=== PATIENT | female | born 1975 | race American Indian/Alaskan Native ===

== ENCOUNTER 2016-12-22 12:02 | Emergency (ER) | payer MEDICARE ==
[2016-12-22 12:28] VITALS: BP 140/88
[2016-12-22 12:56] LABS: Basophils % (Auto) 0.7 % (0.0-1.8); Eosinophils % (Auto) 1.1 % (0.0-4.3); Hematocrit 37.2 % (30.3-42.9); Hemoglobin 12.4 gm/dl (10.1-14.3); Mean Corpuscular HGB Conc 33 % (30-34); Mean Corpuscular Hemoglobin 31 pg (28-32); Mean Corpuscular Volume 92 fl (79-97); Platelet Count 309 K/mm3 (140-440); Red Blood Count 4.06 M/mm3 (3.65-5.03); Red Cell Distribution Width 13.7 % (13.2-15.2); White Blood Count 7.4 K/mm3 (4.5-11.0)
[2016-12-22 13:17] LABS: Anion Gap 18 mmol/L; Blood Urea Nitrogen 12 mg/dL (7-17); Calcium 9.1 mg/dL (8.4-10.2); Carbon Dioxide 24 mmol/L (22-30); Chloride 103.9 mmol/L (98-107); Glucose 100 mg/dL (65-100); Potassium 3.9 mmol/L (3.6-5.0); Sodium 142 mmol/L (137-145)
--- NOTE | 2016-12-23 08:02 | ED Elopement Review ---
ED Pt Elopement review - Results review Lab results: Laboratory Tests 12/22/16 12/22/16 12/22/16 12:47 12:47 12:47 WBC 7.4 RBC 4.06 Hgb 12.4 Hct 37.2 MCV 92 MCH 31 MCHC 33 RDW 13.7 Plt Count 309 Lymph % (Auto) 29.2 [place] % (Auto) 5.8 Eos % (Auto) 1.1 Baso % (Auto) 0.7 Lymph # 2.2 [place] # 0.4 Eos # 0.1 Baso # 0.1 Seg Neutrophils % 63.2 Seg Neutrophils # 4.7 Sodium 142 Potassium 3.9 Chloride 103.9 Carbon Dioxide 24 Anion Gap 18 BUN 12 Creatinine 0.6 L Estimated GFR > 60 BUN/Creatinine Ratio 20.00 Glucose 100 Calcium 9.1 Troponin T < 0.010 HCG, Qual Negative 12/22/16 15:02 WBC RBC Hgb Hct MCV MCH MCHC RDW Plt Count Lymph % (Auto) [place] % (Auto) Eos % (Auto) Baso % (Auto) Lymph # [place] # Eos # Baso # Seg Neutrophils % Seg Neutrophils # Sodium Potassium Chloride Carbon Dioxide Anion Gap BUN Creatinine Estimated GFR BUN/Creatinine Ratio Glucose Calcium Troponin T < 0.010 HCG, Qual - Call Back decision Pt Call Back Decision: Pt to F/U with PMD
== END 2016-12-23 01:00 | disposition left against medical advice (07) ==
LOC: ED 12:02
DX: R06.02 Shortness of breath (principal); R55 Syncope and collapse; Z53.21 Procedure and treatment not carried out due to patient leaving prior to being seen by health care provider
CPT/HCPCS: 36415; 80048; 84484; 84703; 85025; 93005; 93010

== ENCOUNTER 2017-10-07 11:46 | Emergency (ER) | payer MEDICARE ==
[2017-10-07] MEDS ORDERED: AFRIN ONE (11:50)
[2017-10-07] MEDS ORDERED: AFRIN NS ONE (11:52)
--- NOTE | 2017-10-07 12:01 | Emergency Department Report ---
Chief Complaint: Nosebleed Stated Complaint: NOSE BLEED Time Seen by Provider: 10/07/17 11:51 - HPI History of Present Illness: Patient history of previous embolization of artery with history of severe epistaxis and past here for new nosebleed since this a.m. No dizziness no fainting history of Sjourn syndrome, epistaxis since this am. - Exam Vital Signs: Vital Signs 10/07/17 11:49 Pulse Rate 117 H Respiratory 18 Rate Blood Pressure 162/107 O2 Sat by Pulse 99 Oximetry Physical Exam: Epistaxis bilaterally weak alert oriented 3. MSE screening note: Focused history and physical exam performed. Due to findings the following was ordered: Laboratory studies Afrin spray were ordered patient sent to the main ED for further evaluation ED Disposition for MSE Condition: Stable
[2017-10-07] MEDS ORDERED: NORMODYNE IV ONE ×2 (12:10→12:46)
[2017-10-07] MEDS ORDERED: LIDOCAINE VISCOUS 2% ONE (12:31)
[2017-10-07 12:36] LABS: Basophils % (Auto) 0.4 % (0.0-1.8); Hematocrit 37.3 % (30.3-42.9); Hemoglobin 12.2 gm/dl (10.1-14.3); Mean Corpuscular HGB Conc 33 % (30-34); Mean Corpuscular Hemoglobin 30 pg (28-32); Mean Corpuscular Volume 92 fl (79-97); Platelet Count 285 K/mm3 (140-440); Red Blood Count 4.07 M/mm3 (3.65-5.03); Red Cell Distribution Width 13.8 % (13.2-15.2); White Blood Count 8.6 K/mm3 (4.5-11.0)
[2017-10-07] MEDS ORDERED: LIDOCAINE VISCOUS 2% PO ONE (12:39)
[2017-10-07] MEDS ORDERED: NORMODYNE ONE (12:46)
[2017-10-07 12:48] LABS: INR 0.99 (0.87-1.13)
[2017-10-07] MEDS ORDERED: NORVASC PO ONE (15:09)
--- NOTE | 2017-10-07 15:09 | Emergency Department Report ---
ED General Adult HPI - General Chief complaint: Nosebleed Stated complaint: NOSE BLEED Time Seen by Provider: 10/07/17 11:51 Source: patient Mode of arrival: Ambulatory Limitations: No Limitations - History of Present Illness Initial comments: This patient has had several bouts with epistaxis in the past. Her first nosebleed was obviously very major as it resulted in a neck exploration and I presume a ligation of a culprit vessel. That was many years ago. She presents today with recurrent epistaxis. She was spitting up clots. The source of the epistaxis was the left side. She is noncompliant with her blood pressure medicine. She states that she is on 2 medicines but she does not know the names. -: Gradual, minutes(s) Improves with: none Worsens with: none Associated Symptoms: denies other symptoms - Related Data Home Medications Medication Instructions Recorded Confirmed Last Taken Cyclobenzaprine [Flexeril 10 MG 10 mg PO DAILY 12/06/13 12/06/13 11/27/13 TAB] DULoxetine [Cymbalta] 30 mg PO BID 12/06/13 12/06/13 12/05/13 Hydroxychloroquine [Plaquenil] 200 mg PO BID 12/06/13 12/06/13 12/04/13 Nortriptyline [Pamelor] 25 mg PO DAILY 12/06/13 12/06/13 12/04/13 Sulindac 200 mg PO BID 12/06/13 12/06/13 12/04/13 Previous Rx's Medication Instructions Recorded Last Taken Type Cephalexin [Keflex] 500 mg PO BID #20 capsule 11/19/14 Unknown Rx Hydralazine HCl 50 mg PO BID #60 tablet 10/07/17 Unknown Rx amLODIPine [Norvasc] 5 mg PO DAILY #30 tab 10/07/17 Unknown Rx Allergies Allergy/AdvReac Type Severity Reaction Status Date / Time No Known Allergies Allergy Verified 10/07/17 11:49 ED Review of Systems ROS: Stated complaint: NOSE BLEED Other details as noted in HPI Constitutional: denies: chills, fever Eyes: denies: eye pain, eye discharge, vision change ENT: epistaxis. denies: ear pain, throat pain Respiratory: denies: cough, shortness of breath, wheezing Cardiovascular: denies: chest pain, palpitations Endocrine: no symptoms reported Gastrointestinal: denies: abdominal pain, nausea, diarrhea Genitourinary: denies: urgency, dysuria, discharge Musculoskeletal: denies: back pain, joint swelling, arthralgia Skin: denies: rash, lesions Neurological: denies: headache, weakness, paresthesias Psychiatric: denies: anxiety, depression Hematological/Lymphatic: denies: easy bleeding, easy bruising ED Past Medical Hx - Past Medical History Hx Hypertension: Yes (unknown) Hx Congestive Heart Failure: No Hx Diabetes: No Hx Arthritis: Yes (Sjogrens) Hx Seizures: Yes Hx Asthma: No Hx COPD: No Additional medical history: fibromyalgia. lupus - Surgical History Additional Surgical History: tubal ligation. neck surgery - Social History Smoking Status: Never Smoker Substance Use Type: None - Medications Home Medications: Home Medications Medication Instructions Recorded Confirmed Last Taken Type Cyclobenzaprine [Flexeril 10 MG 10 mg PO DAILY 12/06/13 12/06/13 11/27/13 History TAB] DULoxetine [Cymbalta] 30 mg PO BID 12/06/13 12/06/13 12/05/13 History Hydroxychloroquine [Plaquenil] 200 mg PO BID 12/06/13 12/06/13 12/04/13 History Nortriptyline [Pamelor] 25 mg PO DAILY 12/06/13 12/06/13 12/04/13 History Sulindac 200 mg PO BID 12/06/13 12/06/13 12/04/13 History Cephalexin [Keflex] 500 mg PO BID #20 capsule 11/19/14 Unknown Rx Hydralazine HCl 50 mg PO BID #60 tablet 10/07/17 Unknown Rx amLODIPine [Norvasc] 5 mg PO DAILY #30 tab 10/07/17 Unknown Rx ED Physical Exam - General Limitations: No Limitations General appearance: alert, in no apparent distress - Head Head exam: Present: atraumatic, normocephalic - Eye Eye exam: Present: normal appearance - ENT ENT exam: Present: mucous membranes moist, other (some posterior bleeding noted and blood per left nare) - Neck Neck exam: Present: normal inspection. Absent: tenderness, meningismus - Respiratory Respiratory exam: Present: normal lung sounds bilaterally. Absent: respiratory distress - Cardiovascular Cardiovascular Exam: Present: regular rate, normal rhythm. Absent: systolic murmur, diastolic murmur, rubs, gallop - GI/Abdominal GI/Abdominal exam: Present: soft, normal bowel sounds. Absent: distended, tenderness, guarding, rebound, rigid - Extremities Exam Extremities exam: Present: normal inspection - Back Exam Back exam: Present: normal inspection - Neurological Exam Neurological exam: Present: alert, oriented X3. Absent: CN II-XII intact, motor sensory deficit - Psychiatric Psychiatric exam: Present: normal affect, normal mood - Skin Skin exam: Present: warm, dry, intact, normal color. Absent: rash ED Course Vital Signs 10/07/17 10/07/17 11:49 12:40 Pulse Rate 117 H 117 H Respiratory 18 Rate Blood Pressure 162/107 161/102 O2 Sat by Pulse 99 Oximetry - Reevaluation(s) Reevaluation #1: The left nostril was suctioned. Daniel-Synephrine spray was applied. The passage was anesthetized with viscous lidocaine and applicators. A 7.5 cm kg- posterior Rhino Rocket was placed without difficulty. It was inflated with about 10 mL of air. Procedure was well tolerated. Good hemostasis was achieved. Patient was watched for some time. She received 10 mg of labetalol IV. Her blood pressure drifted up to 140/100. She was started on Norvasc. The patient is strongly encouraged to be compliant with her prescription for blood pressure medication. The nasal packing may be removed within the next 24- 36 hours. Return here or see referral ENT physician. 10/07/17 15:12 ED Medical Decision Making - Lab Data Result diagrams: 10/07/17 12:05 Laboratory Results - last 24 hr 10/07/17 10/07/17 12:05 12:05 WBC 8.6 RBC 4.07 Hgb 12.2 Hct 37.3 MCV 92 MCH 30 MCHC 33 RDW 13.8 Plt Count 285 Lymph % (Auto) 22.4 [place] % (Auto) 7.5 H Eos % (Auto) 1.0 Baso % (Auto) 0.4 Lymph # 1.9 [place] # 0.6 Eos # 0.1 Baso # 0.0 Seg Neutrophils % 68.7 Seg Neutrophils # 5.9 PT 13.6 INR 0.99 Critical care attestation.: If time is entered above; I have spent that time in minutes in the direct care of this critically ill patient, excluding procedure time. ED Disposition Clinical Impression: Posterior epistaxis, Uncontrolled hypertension Disposition: DC-01 TO HOME OR SELFCARE Is pt being admited?: No Does the pt Need Aspirin: No Condition: Stable Instructions: Hypertension (ED) Additional Instructions: Do not lay flat. Keep your head propped up all night. Check blood pressure. Indication as directed. See ENT referral for follow-up. Also see her primary care physician as soon as possible. The nasal device may be removed between 24- 36 hours. Return here or with ENT physician. Do not take sulindac or any other anti-inflammatory medicine or aspirin over the next several days to your blood pressure is controlled and your packing is removed. Prescriptions: amLODIPine [Norvasc] 5 mg PO DAILY #30 tab Hydralazine HCl 50 mg PO BID #60 tablet Referrals: LOWELL KHOURY MD [Staff Physician] - 2-3 Days usual, primary care [Other] - [place] Time of Disposition: 15:15
[2017-10-07 16:28] VITALS: BP 143/92
== END 2017-10-07 16:10 | disposition home or self-care (01) ==
LOC: ED 11:46
DX: R04.0 Epistaxis (principal); I10 Essential (primary) hypertension; M35.00 Sjogren syndrome, unspecified; R56.9 Unspecified convulsions
CPT/HCPCS: 36415; 85025; 85610; 96374

== ENCOUNTER 2018-01-29 15:09 | Emergency (ER) | payer MEDICARE ==
[2018-01-29] MEDS ORDERED: REGLAN IV ONE (16:44)
[2018-01-29] MEDS ORDERED: BENADRYL IV ONE (16:44)
--- NOTE | 2018-01-29 16:48 | Emergency Department Report ---
ED Headache HPI - General Chief Complaint: Headache Stated Complaint: HEADACHE Time Seen by Provider: 01/29/18 16:20 - History of Present Illness Initial Comments: Patient is a 42-year-old female with a history of lupus controlled with medication who presents to ED today complaining of headache 2 days. Patient states he describes headache as throbbing, aching in nature and localized to frontal and back region of her head. Patient denies any trauma injuries to the head and neck. Patient states headache worsened with light. Patient states that she is not that her pressure but has been told multiple times her blood pressure is elevated. Patient states she does get headaches from time to time like this before. She denies fevers/chills/nausea vomiting blurred vision. Quality: moderate, achy, throbbing Head Injury Location: frontal Recent Head Trauma: no recent headache/trauma, occasional headaches Modifying Factors: improves with: rest. worse with: exposure to light Allergies/Adverse Reactions: Allergies No Known Allergies Allergy (Verified 10/07/17 11:49) Home Medications: Ambulatory Orders Cyclobenzaprine [Flexeril 10 MG TAB] 10 mg PO DAILY 12/06/13 DULoxetine [Cymbalta] 30 mg PO BID 12/06/13 Hydroxychloroquine [Plaquenil] 200 mg PO BID 12/06/13 Nortriptyline [Pamelor] 25 mg PO DAILY 12/06/13 Sulindac 200 mg PO BID 12/06/13 Cephalexin [Keflex] 500 mg PO BID #20 capsule 11/19/14 Hydralazine HCl 50 mg PO BID #60 tablet 10/07/17 amLODIPine [Norvasc] 5 mg PO DAILY #30 tab 10/07/17 Butalb/Acetaminophen/Caffeine [Fioricet 50-300-40 mg CAP] 1 cap PO Q8HR PRN #24 cap 01/29/18 Ibuprofen [Motrin] 800 mg PO Q8HR PRN #30 tablet 01/29/18 ED Review of Systems ROS: Stated complaint: HEADACHE Other details as noted in HPI Constitutional: denies: chills, fever Eyes: denies: eye pain, eye discharge, vision change ENT: denies: ear pain, throat pain Respiratory: denies: cough, shortness of breath, wheezing Cardiovascular: denies: chest pain, palpitations Endocrine: no symptoms reported Gastrointestinal: denies: abdominal pain, nausea, diarrhea Genitourinary: denies: urgency, dysuria, discharge Musculoskeletal: denies: back pain, joint swelling, arthralgia Skin: denies: rash, lesions Neurological: headache. denies: weakness, numbness, paresthesias, confusion Psychiatric: denies: anxiety, depression Hematological/Lymphatic: denies: easy bleeding, easy bruising ED Past Medical Hx - Past Medical History Previous Medical History?: Yes Hx Hypertension: Yes (unknown) Hx Congestive Heart Failure: No Hx Diabetes: No Hx Arthritis: Yes (Sjogrens) Hx Seizures: Yes Hx Asthma: No Hx COPD: No Additional medical history: fibromyalgia. lupus - Surgical History Past Surgical History?: Yes Additional Surgical History: tubal ligation. neck surgery - Social History Smoking Status: Never Smoker Substance Use Type: Prescribed - Medications Home Medications: Home Medications Medication Instructions Recorded Confirmed Last Taken Type Cyclobenzaprine [Flexeril 10 MG 10 mg PO DAILY 12/06/13 12/06/13 11/27/13 History TAB] DULoxetine [Cymbalta] 30 mg PO BID 12/06/13 12/06/13 12/05/13 History Hydroxychloroquine [Plaquenil] 200 mg PO BID 12/06/13 12/06/13 12/04/13 History Nortriptyline [Pamelor] 25 mg PO DAILY 12/06/13 12/06/13 12/04/13 History Sulindac 200 mg PO BID 12/06/13 12/06/13 12/04/13 History Cephalexin [Keflex] 500 mg PO BID #20 capsule 11/19/14 Unknown Rx Hydralazine HCl 50 mg PO BID #60 tablet 10/07/17 Unknown Rx amLODIPine [Norvasc] 5 mg PO DAILY #30 tab 10/07/17 Unknown Rx Butalb/Acetaminophen/Caffeine 1 cap PO Q8HR PRN #24 cap 01/29/18 Unknown Rx [Fioricet 50-300-40 mg CAP] Ibuprofen [Motrin] 800 mg PO Q8HR PRN #30 tablet 01/29/18 Unknown Rx ED Physical Exam - General Limitations: No Limitations General appearance: alert, in no apparent distress - Head Head exam: Present: atraumatic, normocephalic - Eye Eye exam: Present: normal appearance - ENT ENT exam: Present: mucous membranes moist - Neck Neck exam: Present: normal inspection - Respiratory Respiratory exam: Present: normal lung sounds bilaterally. Absent: respiratory distress - Cardiovascular Cardiovascular Exam: Present: regular rate, normal rhythm. Absent: systolic murmur, diastolic murmur, rubs, gallop - GI/Abdominal GI/Abdominal exam: Present: soft, normal bowel sounds - Extremities Exam Extremities exam: Present: normal inspection - Back Exam Back exam: Present: normal inspection - Neurological Exam Neurological exam: Present: alert, oriented X3, CN II-XII intact, normal gait, reflexes normal - Expanded Neurological Exam Expanded Patient oriented to: Present: person, place, time Speech: Present: fluid speech Cranial nerves: Facial Sensation: Normal Cerebellar function: Finger to Nose: Normal Sensory exam: Upper Extremity Light Touch: Normal, Lower Extremity Light Touch: Normal Motor strength exam: RUE: 5, LUE: 5, RLE: 5, LLE: 5 DTR: knee (R): 2+, knee (L): 2+ Best Eye Response ([place]): (4) open spontaneously Best Motor Response ([place]): (6) obeys commands Best Verbal Response ([place]): (5) oriented [place] Total: 15 - Psychiatric Psychiatric exam: Present: normal affect, normal mood - Skin Skin exam: Present: warm, dry, intact, normal color. Absent: rash ED Course Vital Signs 01/29/18 15:13 Temperature 98.2 F Pulse Rate 117 H Respiratory 20 Rate Blood Pressure 156/104 O2 Sat by Pulse 98 Oximetry ED Medical Decision Making - Medical Decision Making Patient is a 42-year-old female presents to ED for tension-type headache ED course: Reglan and Benadryl IV given. I discussed patient she will need to take medication as prescribed. Fioricet and Motrin as needed for pain I discussed the patient to avoid triggers. I discussed the patient to monitor blood pressure and to follow-up with the primary care physician for blood pressure assessment. Vital signs stable. Headache resolved prior to discharge. Patient had no neuro deficit. She is neurological intact. Critical care attestation.: If time is entered above; I have spent that time in minutes in the direct care of this critically ill patient, excluding procedure time. ED Disposition Clinical Impression: Acute tension-type headache Qualifiers: Intractability: not intractable Qualified Code(s): G44.209 - Tension-type headache, unspecified, not intractable Disposition: DC-01 TO HOME OR SELFCARE Is pt being admited?: No Does the pt Need Aspirin: No Condition: Stable Instructions: Tension Headache (ED), How to Take a Blood Pressure (ED), Acute Headache (ED), Low Sodium Diet (ED), Hypertension (ED) Additional Instructions: Make sure to follow up with the primary care physician as discussed. Take all your medications as you've been prescribed. If you have any worsening symptoms or develop new symptoms please return to ED immediately. Prescriptions: Butalb/Acetaminophen/Caffeine [Fioricet 50-300-40 mg CAP] 1 cap PO Q8HR PRN #24 cap PRN Reason: Headache Ibuprofen [Motrin] 800 mg PO Q8HR PRN #30 tablet PRN Reason: Pain Referrals: INES SINGH MD [Primary Care Provider] - 3-5 Days DIRK CARCAMO MD [Staff Physician] - 3-5 Days BRENDA DESHPANDE MD [Referring] - 3-5 Days [facility] [Provider Group] - 3-5 Days [facility] [Outside] - 3-5 Days [facility] [Outside] - 3-5 Days Forms: Accompanied Note, Work/School Release Form(ED) Time of Disposition: 17:01
[2018-01-29 17:31] VITALS: BP 145/96
== END 2018-01-29 17:31 | disposition home or self-care (01) ==
LOC: ED 15:09
DX: G44.209 Tension-type headache, unspecified, not intractable (principal); I10 Essential (primary) hypertension
CPT/HCPCS: 96374; 96375; 99282; J1200; J2765

== ENCOUNTER 2018-11-19 16:32 | Emergency (ER) | payer MEDICARE ==
[2018-11-19 16:57] VITALS: BP 174/108
[2018-11-19] MEDS ORDERED: ASPIRIN PO ONE (16:57)
--- NOTE | 2018-11-19 17:28 | XRay Report ---
FINAL REPORT PROCEDURE: Chest. TECHNIQUE: PA and lateral chest radiographs were obtained. CPT 13106 HISTORY: Shortness of breath for 2 days. COMPARISON: No prior studies are available for comparison. FINDINGS: The heart size is normal. There is mild tortuosity of the thoracic aorta. The lungs are mildly hyperi nflated. There is some linear interstitial opacity in both lower lobes. This may represent fibrosis. The lungs are otherwise clear. There are no pleural effusions. The soft tissues and regional skeleton are unremarkable. IMPRESSION: Mild COPD. Possible fibrosis in both lower lobes.
[2018-11-19 17:36] LABS: Basophils % (Auto) 0.4 % (0.0-1.8); Eosinophils # (Auto) 0.1 K/mm3 (0.0-0.4); Eosinophils % (Auto) 1.6 % (0.0-4.3); Hematocrit 37.3 % (30.3-42.9); Hemoglobin 12.3 gm/dl (10.1-14.3); Lymphocytes # (Auto) 2.2 K/mm3 (1.2-5.4); Lymphocytes % (Auto) 29.4 % (13.4-35.0); Mean Corpuscular HGB Conc 33 % (30-34); Mean Corpuscular Volume 90 fl (79-97); Monocytes # (Auto) 0.6 K/mm3 (0.0-0.8); Monocytes % (Auto) 8.6 % (0.0-7.3); Platelet Count 289 K/mm3 (140-440); Red Blood Count 4.14 M/mm3 (3.65-5.03); Red Cell Distribution Width 14.5 % (13.2-15.2)
[2018-11-19 17:54] LABS: BUN/Creatinine Ratio 20; Blood Urea Nitrogen 12 mg/dL (7-17); Hemolysis Index 18
--- NOTE | 2018-11-19 18:06 | Emergency Department Report ---
ED Chest Pain HPI - General Chief Complaint: Dyspnea/Respdistress Stated Complaint: SOB/DIZZY/VOMITING Time Seen by Provider: 11/19/18 17:42 Source: patient Mode of arrival: Ambulatory Limitations: No Limitations - History of Present Illness Initial Comments: Ms. lynn is a very pleasant 43-year-old female with history of Sjogren syndrome, seizure, rheumatoid arthritis, fibromyalgia who presents with headache for one week. She also had sharp chest pain last night. During routine with her bilingual medical assistant Dr. Ro today, she noticed that her blood pressure was elevated. Consequently she came to the ED just to make sure everything was okay. Last night while laying in the back of the truck after a fishing trip, she experienced sharp sided chest pain sporadic which lasted several seconds. She also experienced shortness of breath. Currently she is symptom free. After the of her 's blood pressure was elevated a few years ago, she required antihypertensives medication at the time several years ago. Currently she is not under the care of PCP. She was last followed by Dr. Susanna Luna. Complaint: chest pain -: Sudden, Last night Onset: during rest Pain Location: left chest Pain Radiation: none Severity scale (0 -10): 0 Quality: sharp Improves With: nothing Worsens With: nothing re: dyspnea Treatments Prior to Arrival: none - Related Data Home Medications Medication Instructions Recorded Confirmed Last Taken Cyclobenzaprine [Flexeril 10 MG 10 mg PO DAILY 12/06/13 12/06/13 11/27/13 TAB] DULoxetine [Cymbalta] 30 mg PO BID 12/06/13 12/06/13 12/05/13 Hydroxychloroquine [Plaquenil] 200 mg PO BID 12/06/13 12/06/13 12/04/13 Nortriptyline [Pamelor] 25 mg PO DAILY 12/06/13 12/06/13 12/04/13 Sulindac 200 mg PO BID 12/06/13 12/06/13 12/04/13 Previous Rx's Medication Instructions Recorded Last Taken Type cephALEXin [Keflex] 500 mg PO BID #20 capsule 11/19/14 Unknown Rx Hydralazine HCl 50 mg PO BID #60 tablet 10/07/17 Unknown Rx amLODIPine [Norvasc] 5 mg PO DAILY #30 tab 10/07/17 Unknown Rx Butalb/Acetaminophen/Caffeine 1 cap PO Q8HR PRN #24 cap 01/29/18 Unknown Rx [Fioricet 50-300-40 mg CAP] Ibuprofen [Motrin] 800 mg PO Q8HR PRN #30 tablet 01/29/18 Unknown Rx amLODIPine [Norvasc] 5 mg PO DAILY 30 Days #30 tab 11/19/18 Unknown Rx Allergies Allergy/AdvReac Type Severity Reaction Status Date / Time No Known Allergies Allergy Verified 10/07/17 11:49 Heart Score - HEART Score History: Slightly suspicious EKG: Normal Age: < 45 Risk factors: 1-2 risk factors Troponin: < normal limit HEART Score: 1 ED Review of Systems ROS: Stated complaint: SOB/DIZZY/VOMITING Other details as noted in HPI Comment: All other systems reviewed and negative Constitutional: denies: chills, fever Eyes: denies: eye pain, eye discharge, vision change ENT: denies: ear pain, throat pain Respiratory: shortness of breath. denies: cough, wheezing Cardiovascular: chest pain. denies: palpitations Endocrine: no symptoms reported Gastrointestinal: denies: abdominal pain, nausea, diarrhea Genitourinary: denies: urgency, dysuria, discharge Neurological: headache, paresthesias Psychiatric: denies: anxiety, depression Hematological/Lymphatic: denies: easy bleeding, easy bruising ED Past Medical Hx - Past Medical History Previous Medical History?: Yes Hx Hypertension: Yes (unknown) Hx Congestive Heart Failure: No Hx Diabetes: No Hx Arthritis: Yes (Sjogrens) Hx Seizures: Yes Hx Asthma: No Hx COPD: No Additional medical history: fibromyalgia. lupus - Surgical History Additional Surgical History: tubal ligation. neck surgery - Family History Family history: CAD/MD, cancer, diabetes, hypertension - Social History Smoking Status: Never Smoker Substance Use Type: None - Medications Home Medications: Home Medications Medication Instructions Recorded Confirmed Last Taken Type Cyclobenzaprine [Flexeril 10 MG 10 mg PO DAILY 12/06/13 12/06/13 11/27/13 History TAB] DULoxetine [Cymbalta] 30 mg PO BID 12/06/13 12/06/13 12/05/13 History Hydroxychloroquine [Plaquenil] 200 mg PO BID 12/06/13 12/06/13 12/04/13 History Nortriptyline [Pamelor] 25 mg PO DAILY 12/06/13 12/06/13 12/04/13 History Sulindac 200 mg PO BID 12/06/13 12/06/13 12/04/13 History cephALEXin [Keflex] 500 mg PO BID #20 capsule 11/19/14 Unknown Rx Hydralazine HCl 50 mg PO BID #60 tablet 10/07/17 Unknown Rx amLODIPine [Norvasc] 5 mg PO DAILY #30 tab 10/07/17 Unknown Rx Butalb/Acetaminophen/Caffeine 1 cap PO Q8HR PRN #24 cap 01/29/18 Unknown Rx [Fioricet 50-300-40 mg CAP] Ibuprofen [Motrin] 800 mg PO Q8HR PRN #30 tablet 01/29/18 Unknown Rx amLODIPine [Norvasc] 5 mg PO DAILY 30 Days #30 tab 11/19/18 Unknown Rx ED Physical Exam - General Limitations: No Limitations General appearance: alert, in no apparent distress - Head Head exam: Present: atraumatic, normocephalic - Eye Eye exam: Present: normal appearance - ENT ENT exam: Present: mucous membranes moist - Neck Neck exam: Present: normal inspection, full ROM. Absent: tenderness - Respiratory Respiratory exam: Present: normal lung sounds bilaterally. Absent: respiratory distress, wheezes, rales, rhonchi - Cardiovascular Cardiovascular Exam: Present: regular rate, normal rhythm, normal heart sounds. Absent: systolic murmur, diastolic murmur, rubs, gallop - GI/Abdominal GI/Abdominal exam: Present: soft, normal bowel sounds. Absent: distended, tenderness, guarding, rebound - Extremities Exam Extremities exam: Present: normal inspection - Back Exam Back exam: Present: normal inspection - Neurological Exam Neurological exam: Present: alert, oriented X3 - Psychiatric Psychiatric exam: Present: normal affect, normal mood - Skin Skin exam: Present: warm, dry, intact, normal color. Absent: rash ED Course Vital Signs 11/19/18 16:55 Temperature 98.1 F Pulse Rate 93 H Respiratory 20 Rate Blood Pressure 174/108 O2 Sat by Pulse 99 Oximetry ED Medical Decision Making - Lab Data Result diagrams: 11/19/18 17:17 11/19/18 17:17 Laboratory Results - last 24 hr 11/19/18 11/19/18 17:17 17:17 WBC 7.4 RBC 4.14 Hgb 12.3 Hct 37.3 MCV 90 MCH 30 MCHC 33 RDW 14.5 Plt Count 289 Lymph % (Auto) 29.4 [place] % (Auto) 8.6 H Eos % (Auto) 1.6 Baso % (Auto) 0.4 Lymph # 2.2 [place] # 0.6 Eos # 0.1 Baso # 0.0 Seg Neutrophils % 60.0 Seg Neutrophils # 4.5 Sodium 136 L Potassium 3.8 Chloride 101.2 Carbon Dioxide 25 Anion Gap 14 BUN 12 Creatinine 0.6 L Estimated GFR > 60 BUN/Creatinine Ratio 20 Glucose 85 Calcium 9.0 Troponin T < 0.010 - EKG Data EKG shows normal: sinus rhythm, axis, intervals, QRS complexes, ST-T waves Rate: normal - EKG Data Interpretation: no acute changes 11/19/18 18:07 Rate 85 bpm - Radiology Data Radiology results: report reviewed Chest x-ray radiology findings: mild COPD possible pulmonary fibrosis - Medical Decision Making Ms. lynn is a very pleasant 43-year-old female presents with chest pain, dyspnea and headache. She also presents for elevated blood pressure. I reviewed the pressure readings from previous encounters. Since 2017 she had persistently elevated blood pressure. She was previously treated with hydralazine and amlodipine. I suspect essential primary hypertension. I recommended and prescribed Norvasc 30 day prescription. She will have blood pressure checked in 1-2 weeks. I referred her to outpatient physician reference and instruction librarian. Chest pain atypical for acute coronary syndrome. low risk HEART score 1. PERC negative for PE. Currently chest pain-free at this time. I review labs, CBC chemistry troponin within normal limits. Critical care attestation.: If time is entered above; I have spent that time in minutes in the direct care of this critically ill patient, excluding procedure time. ED Disposition Clinical Impression: Chest pain, Hypertension Disposition: DC-01 TO HOME OR SELFCARE Is pt being admited?: No Does the pt Need Aspirin: No Condition: Stable Instructions: Chest Pain (ED), Hypertension (ED) Additional Instructions: Please have your blood pressure checked in 1-2 weeks. Prescriptions: amLODIPine [Norvasc] 5 mg PO DAILY 30 Days #30 tab Referrals: NIKO KIRBY MD [Staff Physician] - 3-5 Days
== END 2018-11-19 18:52 | disposition home or self-care (01) ==
LOC: ED 16:32
DX: R07.89 Other chest pain (principal); I10 Essential (primary) hypertension; M19.90 Unspecified osteoarthritis, unspecified site; Z98.51 Tubal ligation status; Z79.899 Other long term (current) drug therapy
CPT/HCPCS: 36415; 71046; 80048; 84484; 85025; 93005; 93010; 99282

== ENCOUNTER 2019-04-15 17:28 | Emergency (ER) | payer MEDICARE ==
--- NOTE | 2019-04-15 18:36 | Event Note ---
ED Screening Note Date of service: 04/15/19 Time: 18:32 ED Screening Note: 44 y/o female comes in for leg pain and swelling to both. Hx/o Lupus and fibromyalgia. Also has SOB. No travailing, no CA, in . This initial assessment/diagnostic orders/clinical plan/treatment(s) is/are subject to change based on patients health status, clinical progression and re- assessment by fellow clinical providers in the ED. Further treatment and workup at subsequent clinical providers discretion. Patient/guardian urged not to elope from the ED as their condition may be serious if not clinically assessed and managed. Initial orders include:
--- NOTE | 2019-04-15 19:07 | XRay Report ---
CHEST 2 VIEWS INDICATION / CLINICAL INFORMATION: DAVID. Shortness of breath and bilateral leg swelling COMPARISON: None available. FINDINGS: SUPPORT DEVICES: None. HEART / MEDIASTINUM: No significant abnormality. LUNGS / PLEURA: Bibasilar interstitial fibrosis is suspected. No pneumothorax. ADDITIONAL FINDINGS: No significant additional findings. IMPRESSION: 1. 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 Recommend HRCT for confirmation. Signer Name: James Armendariz MD Signed: 04/15/2019 7:02 PM Workstation Name: [id number]
[2019-04-15] MEDS ORDERED: SOLU-Medrol IV ONE (19:37)
[2019-04-15] MEDS ORDERED: TORADOL IV ONE (19:37)
[2019-04-15 20:22] LABS: Basophils % (Auto) 0.3 % (0.0-1.8); Eosinophils # (Auto) 0.1 K/mm3 (0.0-0.4); Eosinophils % (Auto) 0.8 % (0.0-4.3); Hematocrit 33.2 % (30.3-42.9); Hemoglobin 11.2 gm/dl (10.1-14.3); Lymphocytes # (Auto) 1.8 K/mm3 (1.2-5.4); Mean Corpuscular HGB Conc 34 % (30-34); Mean Corpuscular Volume 92 fl (79-97); Monocytes # (Auto) 0.7 K/mm3 (0.0-0.8); Monocytes % (Auto) 7.6 % (0.0-7.3); Platelet Count 269 K/mm3 (140-440); Red Blood Count 3.61 M/mm3 (3.65-5.03); Red Cell Distribution Width 13.8 % (13.2-15.2)
[2019-04-15 20:39] LABS: Alanine Aminotransferase 7 units/L (7-56); Albumin 3.7 g/dL (3.9-5); BUN/Creatinine Ratio 15; Blood Urea Nitrogen 9 mg/dL (7-17); Calcium 9.3 mg/dL (8.4-10.2); Hemolysis Index 7
[2019-04-15 20:48] VITALS: BP 165/108
--- NOTE | 2019-04-15 23:06 | Emergency Department Report ---
ED General Adult HPI - General Chief complaint: Dyspnea/Respdistress Stated complaint: SOB/SWOLLEN LEG Time Seen by Provider: 04/15/19 19:20 Source: patient Mode of arrival: Ambulatory Limitations: No Limitations - History of Present Illness Initial comments: Patient is a 44-year-old -[place] female with a history of SLE, Seizures, HTN, Sjorgren's disease and fibromyalgia and who presents to the ED with the complaint of acute onset persistent bilateral lower extremity swelling and pain for the last 1 week, but which got worse in the last 2 days. Patient also complains of exertional shortness of breath. Patient denies chest pain, dizziness, syncope, nausea, vomiting, abdominal pain, traumatic injury, recent travel or procedure, diarrhea, fever, chills, cough, sore throat, headache, nasal and sinus congestion or diaphoresis and wheezing. MD Complaint: Bilateral leg swelling -: Gradual, week(s) (1) Location: lower extremity (bilateral lower extremities) Radiation: non-radiation Severity scale (0 -10): 4 Quality: aching Consistency: constant Improves with: none Worsens with: movement Associated Symptoms: denies other symptoms, shortness of breath. denies: confusion, chest pain, cough, diaphoresis, fever/chills, headaches, loss of appetite, malaise, seizure, syncope, weakness Treatments Prior to Arrival: none - Related Data Home Medications Medication Instructions Recorded Confirmed Last Taken Cyclobenzaprine [Flexeril 10 MG 10 mg PO DAILY 12/06/13 12/06/13 11/27/13 TAB] DULoxetine [Cymbalta] 30 mg PO BID 12/06/13 12/06/13 12/05/13 Hydroxychloroquine [Plaquenil] 200 mg PO BID 12/06/13 12/06/13 12/04/13 Nortriptyline [Pamelor] 25 mg PO DAILY 12/06/13 12/06/13 12/04/13 Sulindac 200 mg PO BID 12/06/13 12/06/13 12/04/13 Previous Rx's Medication Instructions Recorded Last Taken Type cephALEXin [Keflex] 500 mg PO BID #20 capsule 11/19/14 Unknown Rx Hydralazine HCl 50 mg PO BID #60 tablet 10/07/17 Unknown Rx amLODIPine [Norvasc] 5 mg PO DAILY #30 tab 10/07/17 Unknown Rx Butalb/Acetaminophen/Caffeine 1 cap PO Q8HR PRN #24 cap 01/29/18 Unknown Rx [Fioricet 50-300-40 mg CAP] Ibuprofen [Motrin] 800 mg PO Q8HR PRN #30 tablet 01/29/18 Unknown Rx amLODIPine [Norvasc] 5 mg PO DAILY 30 Days #30 tab 11/19/18 Unknown Rx Allergies Allergy/AdvReac Type Severity Reaction Status Date / Time No Known Allergies Allergy Verified 04/15/19 18:34 ED Review of Systems ROS: Stated complaint: SOB/SWOLLEN LEG Other details as noted in HPI Constitutional: denies: chills, fever Eyes: denies: eye pain, eye discharge, vision change ENT: denies: ear pain, throat pain Respiratory: denies: cough, shortness of breath, wheezing Cardiovascular: denies: chest pain, palpitations Endocrine: no symptoms reported Gastrointestinal: denies: abdominal pain, nausea, diarrhea Genitourinary: denies: urgency, dysuria, discharge Musculoskeletal: back pain, arthralgia (Bilateral lower extremity pain), other (Bilateral Lower extremity swelling). denies: joint swelling Skin: denies: rash, lesions Neurological: denies: headache, weakness, paresthesias Psychiatric: denies: anxiety, depression Hematological/Lymphatic: denies: easy bleeding, easy bruising ED Past Medical Hx - Past Medical History Previous Medical History?: Yes Hx Hypertension: Yes Hx Congestive Heart Failure: No Hx Diabetes: No Hx Arthritis: Yes (Sjogrens, RA) Hx Seizures: Yes Hx Asthma: No Hx COPD: No Additional medical history: fibromyalgia. lupus - Surgical History Past Surgical History?: Yes Additional Surgical History: tubal ligation. neck surgery - Social History Smoking Status: Never Smoker Substance Use Type: None - Medications Home Medications: Home Medications Medication Instructions Recorded Confirmed Last Taken Type Cyclobenzaprine [Flexeril 10 MG 10 mg PO DAILY 12/06/13 12/06/13 11/27/13 History TAB] DULoxetine [Cymbalta] 30 mg PO BID 12/06/13 12/06/13 12/05/13 History Hydroxychloroquine [Plaquenil] 200 mg PO BID 12/06/13 12/06/13 12/04/13 History Nortriptyline [Pamelor] 25 mg PO DAILY 0212/06/13 12/04/13 History Sulindac 200 mg PO BID 12/06/13 12/06/13 12/04/13 History cephALEXin [Keflex] 500 mg PO BID #20 capsule 11/19/14 Unknown Rx Hydralazine HCl 50 mg PO BID #60 tablet 10/07/17 Unknown Rx amLODIPine [Norvasc] 5 mg PO DAILY #30 tab 10/07/17 Unknown Rx Butalb/Acetaminophen/Caffeine 1 cap PO Q8HR PRN #24 cap 01/29/18 Unknown Rx [Fioricet 50-300-40 mg CAP] Ibuprofen [Motrin] 800 mg PO Q8HR PRN #30 tablet 01/29/18 Unknown Rx amLODIPine [Norvasc] 5 mg PO DAILY 30 Days #30 tab 11/19/18 Unknown Rx ED Physical Exam - General Limitations: No Limitations General appearance: alert, in no apparent distress - Head Head exam: Present: atraumatic, normocephalic, normal inspection - Eye Eye exam: Present: normal appearance, PERRL, EOMI Pupils: Present: normal accommodation - ENT ENT exam: Present: normal exam, normal orophraynx, mucous membranes moist, TM's normal bilaterally, normal external ear exam - Neck Neck exam: Present: normal inspection, full ROM. Absent: tenderness - Respiratory Respiratory exam: Present: normal lung sounds bilaterally. Absent: respiratory distress, wheezes, rales, stridor, accessory muscle use, decreased breath sounds, prolonged expiratory - Cardiovascular Cardiovascular Exam: Present: regular rate, normal rhythm, normal heart sounds. Absent: systolic murmur, diastolic murmur, rubs, gallop - GI/Abdominal GI/Abdominal exam: Present: soft, normal bowel sounds. Absent: tenderness, guarding, hyperactive bowel sounds, hypoactive bowel sounds, organomegaly - Rectal Rectal exam: Present: deferred - Extremities Exam Extremities exam: Present: normal inspection, full ROM, tenderness (Diffuse lower extremity palpable musculoskeletal tenderness), normal capillary refill - Back Exam Back exam: Present: normal inspection, full ROM, tenderness (Palpable lumbosacral paraspinal and musculoskeletal tenderness), muscle spasm, paraspinal tenderness. Absent: CVA tenderness (R), CVA tenderness (L) - Neurological Exam Neurological exam: Present: alert, oriented X3, CN II-XII intact, normal gait, reflexes normal - Psychiatric Psychiatric exam: Present: normal affect, normal mood - Skin Skin exam: Present: warm, dry, intact, normal color. Absent: rash, cyanosis, diaphoretic, urticaria, vesicles ED Course Vital Signs 04/15/19 04/15/19 17:37 20:46 Temperature 98.0 F Pulse Rate 96 H 87 Respiratory 14 17 Rate Blood Pressure 146/96 165/108 [Right] O2 Sat by Pulse 99 100 Oximetry - Reevaluation(s) Reevaluation #1: 04/15/19 23:08 Patient is alert and oriented 3 and is not in distress with normal vital signs. Labs were drawn and patient today for pain. EKG was also ordered as well as chest x-ray. Chest x-ray shows no acute cardiopulmonary abnormalities. Lab test results were reviewed and are unremarkable including a BNP and troponin levels. Patient was discharged home on pain medications and muscle relaxants and advised to follow-up with her primary care physician in 7-10 days for reevaluation or return to the ED immediately if symptoms get worse. ED Medical Decision Making - Lab Data Result diagrams: 04/15/19 19:52 04/15/19 19:52 - Radiology Data Radiology results: report reviewed, image reviewed Chest x-ray shows no acute cardiopulmonary abnormalities - Medical Decision Making Patient is alert and oriented 3 and is not in distress with normal vital signs. Labs were drawn and patient today for pain. EKG was also ordered as well as chest x-ray. Chest x-ray shows no acute cardiopulmonary abnormalities. Lab test results were reviewed and are unremarkable including a BNP and troponin levels. Patient was discharged home on pain medications and muscle relaxants and advised to follow-up with her primary care physician in 7-10 days for r eevaluation or return to the ED immediately if symptoms get worse. - Differential Diagnosis CHF; CAD; Pneumonia; Chronic Fibromyalgia Critical care attestation.: If time is entered above; I have spent that time in minutes in the direct care of this critically ill patient, excluding procedure time. ED Disposition Clinical Impression: Muscle spasm of both lower legs, Anxiety as acute reaction to exceptional stress, Shortness of breath Disposition: ELOPED Is pt being admited?: No Does the pt Need Aspirin: No Condition: Stable Instructions: Chronic Pain (ED), Arthralgia (ED), Muscle Spasm (ED) Additional Instructions: Take medications with food, drink plenty of fluids. Follow up with your primary care physician in 7-10 days for reevaluation. Return to the ED immediately if symptoms get worse. Referrals: [facility] [Outside] - 3-5 Days Time of Disposition: 23:13 Print Language: ICELANDIC
== END 2019-04-16 00:10 | disposition left against medical advice (07) ==
LOC: ED 17:28
DX: M62.831 Muscle spasm of calf (principal); F41.9 Anxiety disorder, unspecified; R06.02 Shortness of breath; I10 Essential (primary) hypertension; M19.90 Unspecified osteoarthritis, unspecified site; R56.9 Unspecified convulsions; M79.7 Fibromyalgia; M32.9 Systemic lupus erythematosus, unspecified; Z98.51 Tubal ligation status; Z98.890 Other specified postprocedural states; Z79.899 Other long term (current) drug therapy
CPT/HCPCS: 36415; 71046; 80053; 83880; 84484; 84703; 85025; 96374; 96375; 99284; J1885; J2930

== ENCOUNTER 2020-01-24 00:39 | Emergency (ER) | payer MEDICARE ==
[2020-01-24] MEDS ORDERED: LORazepam 2 MG/ML VIAL ONE (01:01)
--- NOTE | 2020-01-24 01:03 | Emergency Department Report ---
ED Syncope HPI - General Stated Complaint: GENERAL WEAKNESS Time Seen by Provider: 01/24/20 00:54 Source: patient - History of Present Illness Initial Comments: 44-year-old female with history of Sjogren's disease, fibromyalgia, lupus, hypertension, seizure disorder, presents to ED following near syncopal episode. States she got something to drink and she began to feel dizzy and lightheaded, as if she was about to have a seizure. Patient denies actually having a seizure. States she has been out of her phenobarbital for the last month. Patient denies fever, headache, chest pain, nausea or vomiting. Timing/Prior Episodes: other (near syncopal episode) Precipitating Factors: Positive: lightheadedness Context: standing Current Symptoms: denies: chest pain, diaphoresis, headache - Related Data Allergies/Adverse Reactions: Allergies No Known Allergies Allergy (Verified 04/15/19 18:34) Home Medications: Ambulatory Orders Cyclobenzaprine [Flexeril 10 MG TAB] 10 mg PO DAILY 12/06/13 DULoxetine [Cymbalta] 30 mg PO BID 12/06/13 Hydroxychloroquine [Plaquenil] 200 mg PO BID 12/06/13 Nortriptyline [Pamelor] 25 mg PO DAILY 12/06/13 Sulindac 200 mg PO BID 12/06/13 cephALEXin [Keflex] 500 mg PO BID #20 capsule 11/19/14 Hydralazine HCl 50 mg PO BID #60 tablet 10/07/17 amLODIPine 5 mg PO DAILY #30 tab 10/07/17 Butalb/Acetaminophen/Caffeine [Fioricet 50-300-40 mg CAP] 1 cap PO Q8HR PRN #24 cap 01/29/18 Ibuprofen [Motrin] 800 mg PO Q8HR PRN #30 tablet 01/29/18 amLODIPine 5 mg PO DAILY 30 Days #30 tab 11/19/18 PHENobarbitaL [Phenobarbital] 100 mg PO QDAY #30 tablet 01/24/20 ED Review of Systems ROS: Stated complaint: GENERAL WEAKNESS Other details as noted in HPI Comment: All other systems reviewed and negative Constitutional: denies: chills, fever Respiratory: denies: shortness of breath Cardiovascular: denies: chest pain Gastrointestinal: denies: abdominal pain, vomiting, diarrhea Neurological: denies: headache ED Past Medical Hx - Past Medical History Hx Hypertension: Yes Hx Congestive Heart Failure: No Hx Diabetes: No Hx Arthritis: Yes (Sjogrens, RA) Hx Seizures: Yes Hx Asthma: No Hx COPD: No Additional medical history: fibromyalgia. lupus - Surgical History Additional Surgical History: tubal ligation. neck surgery - Social History Smoking Status: Never Smoker Substance Use Type: None - Medications Home Medications: Home Medications Medication Instructions Recorded Confirmed Last Taken Type Cyclobenzaprine [Flexeril 10 MG 10 mg PO DAILY 12/06/13 12/06/13 11/27/13 History TAB] DULoxetine [Cymbalta] 30 mg PO BID 12/06/13 12/06/13 12/05/13 History Hydroxychloroquine [Plaquenil] 200 mg PO BID 12/06/13 12/06/13 12/04/13 History Nortriptyline [Pamelor] 25 mg PO DAILY 12/06/13 12/06/13 12/04/13 History Sulindac 200 mg PO BID 12/06/13 12/06/13 12/04/13 History cephALEXin [Keflex] 500 mg PO BID #20 capsule 11/19/14 Unknown Rx Hydralazine HCl 50 mg PO BID #60 tablet 10/07/17 Unknown Rx amLODIPine 5 mg PO DAILY #30 tab 10/07/17 Unknown Rx Butalb/Acetaminophen/Caffeine 1 cap PO Q8HR PRN #24 cap 01/29/18 Unknown Rx [Fioricet 50-300-40 mg CAP] Ibuprofen [Motrin] 800 mg PO Q8HR PRN #30 tablet 01/29/18 Unknown Rx amLODIPine 5 mg PO DAILY 30 Days #30 tab 11/19/18 Unknown Rx PHENobarbitaL [Phenobarbital] 100 mg PO QDAY #30 tablet 01/24/20 Unknown Rx ED Physical Exam - General General appearance: alert, in no apparent distress - Head Head exam: Present: atraumatic, normocephalic - Eye Eye exam: Present: normal appearance, EOMI - ENT ENT exam: Present: mucous membranes moist - Neck Neck exam: Present: normal inspection - Respiratory Respiratory exam: Present: normal lung sounds bilaterally. Absent: respiratory distress - Cardiovascular Cardiovascular Exam: Present: regular rate, normal rhythm - GI/Abdominal GI/Abdominal exam: Present: soft. Absent: distended, tenderness - Extremities Exam Extremities exam: Present: normal inspection - Neurological Exam Neurological exam: Present: alert, oriented X3, CN II-XII intact. Absent: motor sensory deficit - Psychiatric Psychiatric exam: Present: normal affect, normal mood - Skin Skin exam: Present: warm, dry, intact, normal color ED Course Vital Signs 01/24/20 01/24/20 01/24/20 00:54 01:16 03:43 Temperature 98.2 F Pulse Rate 90 98 H 92 H Respiratory 22 22 12 Rate Blood Pressure 120/80 124/77 [Left] O2 Sat by Pulse 99 99 99 Oximetry 01/24/20 06:29 Temperature Pulse Rate 75 Respiratory 18 Rate Blood Pressure 128/76 [Left] O2 Sat by Pulse 100 Oximetry ED Medical Decision Making - Lab Data Result diagrams: 01/24/20 01:10 01/24/20 02:37 - Medical Decision Making - pt A&O x 3, no neuro deficits - initially reported feeling like she was going to have a seziure; out of phenobarbital x 1 month - seizure meds given here in ED; no seizure activity here - workup unremarkable - pt comfortable w/ d/c home - refill given for phenobarb - neuro f/u advised - Differential Diagnosis arrythmia, seizure, electrolyte abnormality, dehydration Critical care attestation.: If time is entered above; I have spent that time in minutes in the direct care of this critically ill patient, excluding procedure time. ED Disposition Clinical Impression: Hypokalemia, Near syncope Disposition: - TO HOME OR SELFCARE Is pt being admited?: No Condition: Stable Instructions: Hypokalemia (ED), Near Syncope (ED) Prescriptions: PHENobarbitaL [Phenobarbital] 100 mg PO QDAY #30 tablet Referrals: TIM YEPEZ MD [Primary Care Provider] - 3-5 Days [facility] [Provider Group] - 3-5 Days IKER LEWIS MD [Referring] - 3-5 Days Time of Disposition: 04:11
[2020-01-24] MEDS ORDERED: LORazepam 2 MG/ML VIAL IV ONE ×2 (01:04→06:28)
[2020-01-24 01:27] LABS: Basophils % (Auto) 0.3 % (0.0-1.8); Eosinophils # (Auto) 0.1 K/mm3 (0.0-0.4); Eosinophils % (Auto) 0.8 % (0.0-4.3); Hematocrit 35.5 % (30.3-42.9); Hemoglobin 12.3 gm/dl (10.1-14.3); Lymphocytes # (Auto) 2.4 K/mm3 (1.2-5.4); Lymphocytes % (Auto) 23.3 % (13.4-35.0); Mean Corpuscular HGB Conc 35 % (30-34); Mean Corpuscular Volume 86 fl (79-97); Monocytes # (Auto) 0.7 K/mm3 (0.0-0.8); Monocytes % (Auto) 6.9 % (0.0-7.3); Platelet Count 429 K/mm3 (140-440); Red Blood Count 4.11 M/mm3 (3.65-5.03); Red Cell Distribution Width 15.1 % (13.2-15.2)
[2020-01-24 01:46] LABS: Hemolysis Index 1548
[2020-01-24 02:24] LABS: BUN/Creatinine Ratio TNR; Blood Urea Nitrogen TNR mg/dL (7-17)
[2020-01-24 02:25] LABS: Calcium TNR mg/dL (8.4-10.2)
[2020-01-24] MEDS ORDERED: PHENobarbital 15 MG TAB PO ONE (03:00)
[2020-01-24] MEDS ORDERED: PHENobarbital 32.4 MG TAB PO ONE (03:15)
[2020-01-24 03:58] LABS: Alanine Aminotransferase 8 units/L (7-56); BUN/Creatinine Ratio 18; Blood Urea Nitrogen 9 mg/dL (7-17); Calcium 9.2 mg/dL (8.4-10.2); Hemolysis Index 4
[2020-01-24] MEDS ORDERED: POTASSIUM CHLORIDE ER 20 MEQ TAB PO ONE ×2 (04:10→06:18)
[2020-01-24 06:30] VITALS: BP 128/76
== END 2020-01-24 06:30 | disposition home or self-care (01) ==
LOC: ED 00:39
DX: E87.6 Hypokalemia (principal); M13.88 Other specified arthritis, other site; Z98.51 Tubal ligation status; Z98.890 Other specified postprocedural states; Z79.899 Other long term (current) drug therapy
CPT/HCPCS: 36415; 80048; 80053; 84703; 85025; 93005; 93010; 96374; 96376; 99284; J2060

== ENCOUNTER 2020-12-03 09:44 | Emergency (ER) | payer MEDICARE ==
--- NOTE | 2020-12-03 10:35 | Event Note ---
ED Screening Note Date of service: 12/03/20 Time: 10:34 ED Screening Note: This initial assessment/diagnostic orders/clinical plan/treatment(s) is/are subject to change based on patients health status, clinical progression and re- assessment by fellow clinical providers in the ED. Further treatment and workup at subsequent clinical providers discretion. Patient/guardian urged not to elope from the ED as their condition may be serious if not clinically assessed and managed. Initial orders include: 45-year-old female complaining of nosebleed that started at 5 AM this morning. She has a history of nosebleeds states this happens at least once a year she usually comes in to get nasal packing and she has a ENT to follow-up with she currently has bleeding from her right nare. She is in no acute distress
[2020-12-03] MEDS ORDERED: OXYMETAZOLINE 0.05% NASAL SPRAY NS ONE (11:47)
--- NOTE | 2020-12-03 11:49 | Emergency Department Report ---
HPI - General Chief Complaint: Nosebleed Time Seen by Provider: 12/03/20 11:39 - HPI HPI: Room 37 The patient is a 45-year-old female present with a chief complaint of nosebleed. The patient states she went to sleep this morning at 03: 00 but awakened at approximately 05: 00 with epistaxis. Patient states she was in her usual state of health when she went to bed and denies any preceding URI symptoms. Patient denies history of fever. Patient placed tissue in her nose and there is currently no active bleeding ED Past Medical Hx - Past Medical History Hx Hypertension: Yes Hx Arthritis: Yes (Sjogrens, RA) Hx Seizures: Yes Additional medical history: fibromyalgia. lupus - Surgical History Additional Surgical History: tubal ligation. neck surgery - Family History Family history: no significant - Social History Smoking Status: Never Smoker Substance Use Type: None - Medications Home Medications: Home Medications Medication Instructions Recorded Confirmed Last Taken Type Cyclobenzaprine [Flexeril 10 MG 10 mg PO DAILY 12/06/13 12/06/13 11/27/13 History TAB] DULoxetine [Cymbalta] 30 mg PO BID 12/06/13 12/06/13 12/05/13 History Hydroxychloroquine [Plaquenil] 200 mg PO BID 12/06/13 12/06/13 12/04/13 History Nortriptyline [Pamelor] 25 mg PO DAILY 12/06/13 12/06/13 12/04/13 History Sulindac 200 mg PO BID 12/06/13 12/06/13 12/04/13 History cephALEXin [Keflex] 500 mg PO BID #20 capsule 11/19/14 Unknown Rx Hydralazine HCl 50 mg PO BID #60 tablet 10/07/17 Unknown Rx amLODIPine 5 mg PO DAILY #30 tab 10/07/17 Unknown Rx Butalb/Acetaminophen/Caffeine 1 cap PO Q8HR PRN #24 cap 01/29/18 Unknown Rx [Fioricet 50-300-40 mg CAP] Ibuprofen [Motrin] 800 mg PO Q8HR PRN #30 tablet 01/29/18 Unknown Rx amLODIPine 5 mg PO DAILY 30 Days #30 tab 11/19/18 Unknown Rx PHENobarbitaL [Phenobarbital] 100 mg PO QDAY #30 tablet 01/24/20 Unknown Rx ED Review of Systems ROS: Stated complaint: NOSEBLEED Other details as noted in HPI Constitutional: denies: fever Eyes: denies: eye pain ENT: epistaxis Respiratory: no symptoms reported Cardiovascular: denies: chest pain Endocrine: no symptoms reported Gastrointestinal: denies: abdominal pain Genitourinary: denies: dysuria Musculoskeletal: denies: back pain Neurological: denies: headache Physical Exam - Physical Exam Vital Signs: Vital Signs 12/03/20 12/03/20 09:46 09:47 Temperature 98.8 F Pulse Rate 82 Respiratory 20 Rate Blood Pressure 161/101 O2 Sat by Pulse 98 Oximetry Physical Exam: GENERAL: The patient is well-developed well-nourished female sitting on stretcher not appearing to be in acute distress. [] HEENT: Normocephalic. Atraumatic. Extraocular motions are intact. Patient has moist mucous membranes. Dried blood present in right naris. No active bleeding appreciated. Left naris appears clear. Oropharynx clear. No active bleeding seen NECK: Supple. Trachea midline CHEST/LUNGS: There is no respiratory distress noted. ABDOMEN: There is no abdominal distention. SKIN: There is no rash. There is no edema. There is no diaphoresis. NEURO: The patient is awake, alert, and oriented. The patient is cooperative. The patient has no focal neurologic deficits. The patient has normal speech MUSCULOSKELETAL: There is no evidence of acute injury. ED Course Vital Signs 12/03/20 12/03/20 09:46 09:47 Temperature 98.8 F Pulse Rate 82 Respiratory 20 Rate Blood Pressure 161/101 O2 Sat by Pulse 98 Oximetry - Reevaluation(s) Reevaluation #1: 12/03/20 12:10 Afrin soaked gauze placed in nose bilaterally. Reevaluation #2: 12/03/20 12:31 Oropharynx remains clear. Packing in place. No active bleeding seen. Patient counseled on leaving packing in for 6 hours and not blowing her nose for 24 to 48 hours. ED Medical Decision Making - Lab Data Result diagrams: 12/03/20 11:44 12/03/20 11:44 Laboratory Tests 12/03/20 12/03/20 12/03/20 11:44 11:44 11:44 WBC 9.6 RBC 4.06 Hgb 12.2 Hct 36.0 MCV 89 MCH 30 MCHC 34 RDW 14.4 Plt Count 297 Lymph % (Auto) 21.9 [place] % (Auto) 6.3 Eos % (Auto) 2.3 Baso % (Auto) 0.6 Lymph # (Auto) 2.1 [place] # (Auto) 0.6 Eos # (Auto) 0.2 Baso # (Auto) 0.1 Seg Neutrophils % 68.9 Seg Neutrophils # 6.6 PT 12.7 INR 0.97 APTT 30.3 Sodium 135 L Potassium 4.2 Chloride 102.4 Carbon Dioxide 22 Anion Gap 15 BUN 13 Creatinine 0.5 L Estimated GFR > 60 BUN/Creatinine Ratio 26 Glucose 93 Calcium 9.0 - Differential Diagnosis Epistaxis Critical care attestation.: If time is entered above; I have spent that time in minutes in the direct care of this critically ill patient, excluding procedure time. ED Disposition Clinical Impression: Epistaxis Disposition: DC-01 TO HOME OR SELFCARE Is pt being admited?: No Does the pt Need Aspirin: No Condition: Stable Instructions: Nosebleed, Adult Additional Instructions: Return to the emergency department should you develop worsening symptoms, inability to tolerate food or liquids, high fever or any other concerns Referrals: PRIMARY CARE, [Primary Care Provider] - 3-[address] Staples, your ENT [Other] - [facility] Time of Disposition: 12:32
[2020-12-03 12:02] LABS: Basophils # (Auto) 0.1 K/mm3 (0.0-0.1); Basophils % (Auto) 0.6 % (0.0-1.8); Eosinophils # (Auto) 0.2 K/mm3 (0.0-0.4); Eosinophils % (Auto) 2.3 % (0.0-4.3); Hemoglobin 12.2 gm/dl (10.1-14.3); Lymphocytes # (Auto) 2.1 K/mm3 (1.2-5.4); Lymphocytes % (Auto) 21.9 % (13.4-35.0); Mean Corpuscular HGB Conc 34 % (30-34); Mean Corpuscular Volume 89 fl (79-97); Monocytes # (Auto) 0.6 K/mm3 (0.0-0.8); Monocytes % (Auto) 6.3 % (0.0-7.3); Platelet Count 297 K/mm3 (140-440); Red Blood Count 4.06 M/mm3 (3.65-5.03); Red Cell Distribution Width 14.4 % (13.2-15.2)
[2020-12-03] MEDS ORDERED: amLODIPine 5 MG TAB PO ONE (12:05)
[2020-12-03 12:14] LABS: Blood Urea Nitrogen 13 mg/dL (7-17); Hemolysis Index 37
[2020-12-03 12:17] LABS: BUN/Creatinine Ratio 26
[2020-12-03 12:20] LABS: INR 0.97 (0.87-1.13)
[2020-12-03 12:21] LABS: Partial Thromboplastin Time 30.3 Sec. (24.2-36.6)
[2020-12-03 12:46] VITALS: BP 154/101
== END 2020-12-03 12:46 | disposition home or self-care (01) ==
LOC: ED 09:44
DX: R04.0 Epistaxis (principal); I10 Essential (primary) hypertension; M19.91 Primary osteoarthritis, unspecified site; R56.9 Unspecified convulsions; Z98.51 Tubal ligation status; Z98.890 Other specified postprocedural states; Z79.899 Other long term (current) drug therapy
CPT/HCPCS: 36415; 80048; 85025; 85610; 85730